=== PATIENT | female | born 1985 | race Caucasian/White ===

== ENCOUNTER 2021-01-04 07:01 | Emergency (ER) | payer OTHER ==
[~2021-01-04] VITALS: Ht 170.1 cm; Wt 72.6 kg
[2021-01-04] MEDS ORDERED: HYDROCODONE-AC1 EAC1 PO (08:33)
== END 2021-01-04 08:55 | disposition home or self-care (01) ==
LOC: ED 07:01
DX: K08.89 Other specified disorders of teeth and supporting structures (principal); E11.9 Type 2 diabetes mellitus without complications